=== PATIENT | male | born 1995 | race African-American/Black ===

== ENCOUNTER 2020-07-03 06:32 | Inpatient (IN) | payer OTHER ==
[~2020-07-03] VITALS: Ht 175.3 cm; Wt 89.0 kg
[2020-07-03] MEDS ORDERED: dexameTHASONE 20MG/5ML VIAL (J1100 PER 1MG) IV ONE (07:15)
[2020-07-03] MEDS ORDERED: KETOROLAC 30 MG/ML 1ML VIAL IV ONE (07:15)
[2020-07-03] MEDS ORDERED: ISOVUE-370 76% 100ML VIAL As Ordered ONE (07:28)
[2020-07-03 07:29] LABS: BASO % 0.2 % (0.0-1.0); EOS # 0.1 10^3/uL (0.0-0.5); HEMATOCRIT 48.2 % (42.0-52.0); HEMOGLOBIN 14.5 g/dl (13.5-17.5); LYMPH # 1.1 10^3/uL (1.5-5.0); LYMPH % 10.3 % (24.0-44.0); MEAN CORPUSCULAR HEMOGLOBIN 26.1 pg (27.0-33.0); MEAN CORPUSCULAR HGB CONC 30.1 g/dl (32.0-36.5); MEAN CORPUSCULAR VOLUME 86.8 fl (80.0-96.0); MONO # 1.1 10^3/uL (0.0-0.8); MONO % 10.4 % (0.0-5.0); NEUTROPHILS % 77.8 % (36.0-66.0); PLATELET COUNT, AUTOMATED 220 10^3/uL (150-450); RED BLOOD COUNT 5.55 10^6/uL (4.30-6.10); WHITE BLOOD COUNT 10.3 10^3/uL (4.0-10.0)
[2020-07-03 07:57] LABS: ERYTHROCYTE SEDIMENTATION RATE 2 mm/hr (0-15)
--- NOTE | 2020-07-03 08:17 | REP ---
INDICATION: L throat/neck pain, r/o abscess COMPARISON: None. TECHNIQUE: Axial contrast-enhanced images from the skull base to the thoracic inlet with coronal and sagittal reformations using 100 cc Isovue 370 intravenous contrast material. This CT examination was performed using the following dose reduction techniques: Automated exposure control, adjustment of mA and/or kv according to the patient's size, and use of iterative reconstruction technique. FINDINGS: There is moderate left parapharyngeal/peritonsillar soft tissue swelling and phlegmonous changes having mild mass effect on the adjacent airway and there is a small forming left peritonsillar abscess measuring 16 mm diameter (axial images 30-48). The nasopharynx, oropharynx, hypopharynx, and upper tracheal airway remain patent. Associated left cervical adenopathy is appreciated. The osseous structures are intact and normal. The sinuses are well aerated and clear without mucosal thickening or fluid levels. The bilateral orbits are symmetric and normal. The vascular structures through the neck are symmetric and normal. The thyroid, parotid and salivary glands are symmetric and normal. IMPRESSION: Left parapharyngeal soft tissue swelling with small forming left peritonsillar abscess. <Electronically signed by Stephen Dodge > 07/03/20 [id number]
[2020-07-03 09:08] LABS: MONO SCRN NEGATIVE (NEGATIVE)
[2020-07-03] MEDS ORDERED: AMPICILLIN SOD/SULBACTAM SOD 3 GM in D5W MINI-BAG PLUS 100 ML IV ONE (10:00)
[2020-07-03 10:53] LABS: RSV AMPLIFICATION NEGATIVE (NEGATIVE)
--- NOTE | 2020-07-03 13:09 | HPEPDOC ---
[facility] Medical History & Physical Date of Admission Jul 03, 2020 Date of Service: Jul 03, 2020 History and Physical CHIEF COMPLAINT: Sore throat HISTORY OF PRESENT ILLNESS: 24 yo male for 3 day history of worsening sore thr oat. Patient notes left sided neck swelling and discomfort. He notes dysphagia and odynophagia. He denies any difficulty maintaining secretions, or drooling. He denies chest pain, shortness of breath, N/V/D, abdominal pain. He is active . His is and admitted to the hospital, expecting to deliver his son in the next day or two. PAST MEDICAL HISTORY: Denies ALLERGIES: Please see below. REVIEW OF SYSTEMS: Negative except as per HPI. HOME MEDICATIONS: Please see below. PHYSICAL EXAMINATION: VITAL SIGNS: See below General: NAD, lying comfortably in bed HEENT: NC, left neck swelling Lungs: CTA B/L Heart: +S1S2, RRR Abd: soft, NT, +BS Ext: no edema LABORATORY DATA: See below. MICROBIOLOGY: Please see below. A/P: 24yo male for peritonsillar abscess, presenting with 3 days worsening dysphagia, odynophagia. #peritonsillar abscess - follow as per ENT - consultation pending - continuous pulse ox - IV Unasyn, steroids - clear liquids Dispo: pending ENT eval Vital Signs Vital Signs Date Time Temp Pulse Resp B/P (MAP) Pulse Ox O2 Delivery O2 Flow Rate FiO2 07/03/20 11:51 98.1 55 17 133/60 (84) 99 Room Air Laboratory Data Labs 24H Laboratory Tests 2 07/03/20 07:20: Immature Granulocyte % (Auto) 0.3, Neutrophils (%) (Auto) 77.8H, Lymphocytes (%) (Auto) 10.3L, Monocytes (%) (Auto) 10.4H, Eosinophils (%) (Auto) 1.0, Basophils (%) (Auto) 0.2, Neutrophils # (Auto) 8.0, Lymphocytes # (Auto) 1.1L, Monocytes # (Auto) 1.1H, Eosinophils # (Auto) 0.1, Basophils # (Auto) 0.0, Nucleated Red Blood Cells % (auto) 0.0, Erythrocyte Sedimentation Rate 2, C-Reactive Protein, Quantitative 1.05H, Monoscreen NEGATIVE 07/03/20 07:23: POC Glucose (Misc Panel) 145H, POC Sodium (Misc Panel) 138, POC Potassium (Misc Panel) 4.0, POC Chloride (Misc Panel) 101, POC Total CO2 (Misc Panel) 30.0H, POC Blood Urea Nitrogen (Misc Panel 10, POC Ionized Calcium (Misc Panel) 4.8, POC Creatinine (Misc Panel) 1.1, POC Hematocrit (Misc Panel) 45.0 07/03/20 10:04: Coronavirus (COVID-19)(PCR) NEGATIVE, Influenza Type A (RT-PCR) NEGATIVE, Influenza Type B (RT-PCR) NEGATIVE, Respiratory Syncytial Virus (PCR) NEGATIVE CBC/BMP Laboratory Tests 07/03/20 07:20 Microbiology Microbiology 07/03/20 Group A Streptococcus Screen (CASE), Received Pending Home Medications No Active Prescriptions or Reported Meds Allergies Coded Allergies: No Known Allergies (Unverified , 07/03/20) A-FIB/CHADSVASC A-FIB History Current/History of A-Fib/PAF?: No TONE CORRALES MD Jul 03, 2020 13:09
[2020-07-03] MEDS ORDERED: AMPICILLIN SOD/SULBACTAM SOD 1.5 GM in D5W MINI-BAG PLUS 50 ML IV SCH (16:00)
[2020-07-03 16:40] VITALS: BP 120/70
[2020-07-03] MEDS: MORPHINE 2 MG/ML 1ML VIAL (J2270) IV PRN ×2 (16:53→21:17)
[2020-07-03] MEDS: AMPICILLIN SOD/SULBACTAM SOD 3 GM in D5W MINI-BAG PLUS 100 ML IV SCH ×2 (16:57→21:16)
[2020-07-03 17:22] VITALS: O2SAT 100
[2020-07-03 22:00] VITALS: BP 130/80
[2020-07-04 03:15] VITALS: O2SAT 98
[2020-07-04] MEDS: AMPICILLIN SOD/SULBACTAM SOD 3 GM in D5W MINI-BAG PLUS 100 ML IV SCH ×4 (03:58→22:30)
[2020-07-04] MEDS: MORPHINE 2 MG/ML 1ML VIAL (J2270) IV PRN (03:58)
[2020-07-04 06:00] VITALS: BP 101/51
[2020-07-04 06:54] LABS: HEMATOCRIT 46.2 % (42.0-52.0); HEMOGLOBIN 14.3 g/dl (13.5-17.5); MEAN CORPUSCULAR HEMOGLOBIN 26.7 pg (27.0-33.0); MEAN CORPUSCULAR VOLUME 86.4 fl (80.0-96.0); PLATELET COUNT, AUTOMATED 231 10^3/uL (150-450); RED BLOOD COUNT 5.35 10^6/uL (4.30-6.10); WHITE BLOOD COUNT 15.2 10^3/uL (4.0-10.0)
[2020-07-04 07:20] LABS: BLOOD UREA NITROGEN 10 MG/DL (7-18); CALCIUM LEVEL 8.7 MG/DL (8.5-10.1); CARBON DIOXIDE LEVEL 29 MEQ/L (21-32); CHLORIDE LEVEL 104 MEQ/L (98-107); CREATININE FOR GFR 1.08 MG/DL (0.70-1.30); GLOMERULAR FILTRATION RATE > 60.0 (>60); GLUCOSE, FASTING 110 MG/DL (70-100); POTASSIUM SERUM 3.5 MEQ/L (3.5-5.1); SODIUM LEVEL 138 MEQ/L (136-145)
--- NOTE | 2020-07-04 10:20 | IPN ---
PROGRESS NOTE DATE: 07/04/2020 SUBJECTIVE: Edi was admitted with a left peritonsillar abscess. He is on IV antibiotics pending ENT evaluation. CT of the neck yesterday showed a small left peritonsillar abscess. He is having no trouble with stridor, shortness of breath, difficulty swallowing, secretions, or pain control. He says he feels "50% better" from yesterday. OBJECTIVE: VITAL SIGNS: Afebrile. Vital signs stable. NECK: Slightly tender on the left side. Airway is unremarkable. Uvula not significantly deviated. LUNGS: Clear. HEART: Regular rhythm. LABORATORY DATA: Electrolytes show potassium 3.5, white count is 15.2. Monospot negative. Respiratory panel negative. IMPRESSION/PLAN: Peritonsillar abscess. Continue the IV antibiotic with Unasyn. White count is up, but I see he got a dose of Decadron in the emergency room 10 mg IV, which probably accounts for that. Clinically he has improved. We are waiting for ENT to see him.
[2020-07-04 14:00] VITALS: BP 128/79
[2020-07-04 22:00] VITALS: BP 110/65
[2020-07-05] MEDS: AMPICILLIN SOD/SULBACTAM SOD 3 GM in D5W MINI-BAG PLUS 100 ML IV SCH ×3 (04:31→10:09)
[2020-07-05 06:00] VITALS: BP 111/63
[2020-07-05 06:27] LABS: HEMATOCRIT 47.2 % (42.0-52.0); HEMOGLOBIN 14.2 g/dl (13.5-17.5); MEAN CORPUSCULAR HEMOGLOBIN 26.4 pg (27.0-33.0); MEAN CORPUSCULAR HGB CONC 30.1 g/dl (32.0-36.5); MEAN CORPUSCULAR VOLUME 87.9 fl (80.0-96.0); PLATELET COUNT, AUTOMATED 228 10^3/uL (150-450); RED BLOOD COUNT 5.37 10^6/uL (4.30-6.10); WHITE BLOOD COUNT 7.5 10^3/uL (4.0-10.0)
[2020-07-05 06:50] LABS: BLOOD UREA NITROGEN 11 MG/DL (7-18); CARBON DIOXIDE LEVEL 28 MEQ/L (21-32); CHLORIDE LEVEL 105 MEQ/L (98-107); CREATININE FOR GFR 1.17 MG/DL (0.70-1.30); GLOMERULAR FILTRATION RATE > 60.0 (>60); GLUCOSE, FASTING 98 MG/DL (70-100); POTASSIUM SERUM 3.8 MEQ/L (3.5-5.1); SODIUM LEVEL 139 MEQ/L (136-145)
[2020-07-05 06:51] LABS: CALCIUM LEVEL 8.9 MG/DL (8.5-10.1)
[2020-07-05] MEDS ORDERED: AUGM875T28 PO ×2 (08:58→10:09)
--- NOTE | 2020-07-05 09:14 | DSES ---
DISCHARGE SUMMARY DATE OF ADMISSION: 07/03/2020 DATE OF DISCHARGE: 07/05/2020 PRINCIPAL DIAGNOSIS: Left peritonsillar abscess. HISTORY: Patient was admitted with a left peritonsillar abscess for IV antibiotics, ear, nose, and throat (ENT) consultation. HOSPITAL COURSE: He was treated with IV Unasyn. He was seen by ENT, I do not have the dictated report. Per nursing staff, no surgical intervention was felt necessary and the patient could be discharged on oral antibiotic. At discharge, he has minimal throat discomfort, has no trouble with secretions, there is no stridor or shortness of breath. He is eager for discharge. He is afebrile. Pharynx shows no deviation of the uvula. Lungs: Clear. Heart: Regular rate and rhythm. DISPOSITION: Patient is discharged home in improved and stable condition. He will be on Augmentin 875 mg twice a day for 7 days. Followup with his primary care provider. Activity as tolerated. Diet as tolerated.
== END 2020-07-05 10:20 | disposition home or self-care (01) | DRG 153 ==
LOC: M ED 06:32 → M ED INP 11:09 → M MSPAV 16:27
PROVIDERS: ADMIT Internal Medicine; ATTEND Family Medicine
DX: J36 Peritonsillar abscess (principal)

== ENCOUNTER 2020-11-28 20:35 | Emergency (ER) | payer OTHER ==
[~2020-11-28] VITALS: Ht 175.3 cm; Wt 77.3 kg
[~2020-11-28 20:35] MED LIST: AUGM875T28 PO
[2020-11-28 22:06] LABS: HEMATOCRIT 46.8 % (42.0-52.0); HEMOGLOBIN 14.8 g/dl (13.5-17.5); MEAN CORPUSCULAR HEMOGLOBIN 27.2 pg (27.0-33.0); MEAN CORPUSCULAR HGB CONC 31.6 g/dl (32.0-36.5); MEAN CORPUSCULAR VOLUME 85.9 fl (80.0-96.0); PLATELET COUNT, AUTOMATED 264 10^3/uL (150-450); RED BLOOD COUNT 5.45 10^6/uL (4.30-6.10); WHITE BLOOD COUNT 5.8 10^3/uL (4.0-10.0)
[2020-11-28 22:32] LABS: AMPHETAMINES LEVEL URINE NEGATIVE (NEGATIVE); BARBITURATES URINE NEGATIVE (NEGATIVE); BENZODIAZEPINES URINE NEGATIVE (NEGATIVE); CANNABINOIDS URINE NEGATIVE (NEGATIVE); COCAINE METABOLITE URINE NEGATIVE (NEGATIVE); METHADONE URINE NEGATIVE (NEGATIVE); OPIATES URINE NEGATIVE (NEGATIVE); PHENCYCLIDINE URINE NEGATIVE (NEGATIVE)
[2020-11-28 22:37] LABS: ACETAMINOPHEN LEVEL < 2.0 UG/ML (10.0-30.0); ALBUMIN 4.2 GM/DL (3.2-5.2); ALT/SGPT 34 U/L (12-78); BILIRUBIN,DIRECT 0.3 MG/DL (0.0-0.2); BILIRUBIN,TOTAL 1.2 MG/DL (0.2-1.0); BLOOD UREA NITROGEN 11 MG/DL (7-18); CALCIUM LEVEL 9.6 MG/DL (8.5-10.1); CARBON DIOXIDE LEVEL 31 MEQ/L (21-32); CHLORIDE LEVEL 105 MEQ/L (98-107); CREATININE FOR GFR 1.15 MG/DL (0.70-1.30); ETHYL ALCOHOL (ETHANOL) < 0.003 % (0.000-0.010); GLOMERULAR FILTRATION RATE > 60.0 (>60); GLUCOSE, FASTING 97 MG/DL (70-100); POTASSIUM SERUM 4.2 MEQ/L (3.5-5.1); SALICYLATE LEVEL < 1.7 MG/DL (5.0-30.0); SODIUM LEVEL 140 MEQ/L (136-145); TOTAL PROTEIN 8.3 GM/DL (6.4-8.2)
[2020-11-29 06:47] LABS: RSV AMPLIFICATION NEGATIVE (NEGATIVE)
[2020-11-29 15:56] VITALS: BP 144/81
--- NOTE | 2020-11-30 08:45 | ECGEPIP ---
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
== END 2020-11-29 16:06 ==
LOC: M ED 20:35
DX: R45.851 Suicidal ideations (principal); F33.9 Major depressive disorder, recurrent, unspecified; F41.9 Anxiety disorder, unspecified; G47.30 Sleep apnea, unspecified; G43.909 Migraine, unspecified, not intractable, without status migrainosus; F17.210 Nicotine dependence, cigarettes, uncomplicated

== ENCOUNTER → 2021-09-24 | Outpatient (REF) | payer OTHER | LOC: M CARPUL 13:17 → EDSTATUS 13:30 | PROVIDERS: ATTEND Internal Medicine | DX: R00.2 Palpitations (principal) ==